=== PATIENT | female | born 1930 | race Caucasian/White ===

== ENCOUNTER → 2018-04-10 | Outpatient (CLI) | payer MEDICARE ==
[~2018-04-10] MED LIST: ASPI-COR81 M1 PO; HEP-FORTE1 CAP PO; LOVASTATIN20 MG PO; LYRICA75 MG PO
== END | disposition home or self-care (01) ==
LOC: CARD 02-27 13:00
DX: I08.1 Rheumatic disorders of both mitral and tricuspid valves (principal)